=== PATIENT | male | born 1955 | race Two or more races ===

== ENCOUNTER 2024-09-25 10:08 | Emergency (ER) | payer OTHER ==
[~2024-09-25] VITALS: Ht 180.3 cm; Wt 94.8 kg
[2024-09-25] MEDS ORDERED: TOPROL XL25 M1 (10:25)
[2024-09-25] MEDS ORDERED: FLONASE16 GM NS (10:25)
[2024-09-25] MEDS ORDERED: VASOTEC20 MG (10:25)
[2024-09-25] MEDS ORDERED: KETOROLAC TROMETHAMINE 30 MG VIAL IM STA (10:54)
[2024-09-25] MEDS ORDERED: CEFTRIAXONE SODIUM 1,000 MG VIAL IM STA (10:54)
== END 2024-09-25 11:52 | disposition home or self-care (01) ==
LOC: ER 10:08
DX: J32.9 Chronic sinusitis, unspecified (principal)
CPT/HCPCS: 96372; 99282; J0696; J1885